=== PATIENT | female | born 1980 | race American Indian/Alaskan Native ===

== ENCOUNTER 2017-12-20 09:02 | Day surgery (SDC) | payer BC ==
[2017-12-18 14:22] VITALS: BMI 19.3
[~2017-12-20 09:02] MED LIST: Lidocaine 1%/Epinephrine 1:100000 30 ml vial IJ STA
[2017-12-20] MEDS ORDERED: Bupivacaine HCl 0.25% PF (10 ml) Inj ONE ×2 (13:08→14:59)
[2017-12-20] MEDS ORDERED: cefOXitin IV 1 gm in Dextrose 1 GM/50 ML BAG IVPB ONE (13:09)
[2017-12-20] MEDS ORDERED: Midazolam 2 MG/2 ML VIAL ONE (13:37)
[2017-12-20] MEDS ORDERED: Propofol 10 mg/ml Inj (20 ML) ONE (13:37)
[2017-12-20] MEDS ORDERED: Neostigmine Methylsulfate 3mg/3ml Syringe IV ONE (15:02)
[2017-12-20] MEDS ORDERED: Morphine 4 MG/ML VIAL ONE (15:11)
[2017-12-20] MEDS ORDERED: Oxycodone/Acetaminophen 5/325 mg Tab PO PRN (15:36)
--- NOTE | 2017-12-20 15:36 | PCM.SURG1 ---
Surgeon's Initial Post Op Note - Surgeon's Notes Surgeon: Dr. Lundberg Basketball Coach: Miranda Woodward, PGY-1; Gaye Hensley Pre-Operative Diagnosis: Cholelithiasis Operative Findings: See op report Post-Operative Diagnosis: Cholelithiasis Operation Performed: Robotic cholecystectomy Specimen/Specimens Removed: Gallbladder Estimated Blood Loss: EBL {In ML}: 10 Blood Products Given: N/A Drains Used: No Drains Post-Op Condition: Good Date of Surgery/Procedure: 12/20/17 Time of Surgery/Procedure: 15:36
[2017-12-20] MEDS ORDERED: HYDROmorphone 0.5 mg/0.5 ml ISec IVP PRN (15:39)
[2017-12-20 15:45] VITALS: O2SAT 100
[2017-12-20] MEDS ORDERED: Lactated Ringer's 1,000 ML IV ONE (18:20)
[2017-12-20 20:57] VITALS: BP 145/87; PULSE 96; RESP 16; TEMP 98.2
--- NOTE | 2017-12-22 07:57 | OP ---
PROCEDURE DATE: 12/20/2017 PREOPERATIVE DIAGNOSES: 1. Chronic cholecystitis and cholelithiasis. 2. Abdominal pain. POSTOPERATIVE DIAGNOSES: 1. Chronic cholecystitis and cholelithiasis. 2. Abdominal pain. 3. Extensive postinfectious adhesion of the omentum and colon to the gallbladder. PROCEDURES: 1. Robotic cholecystectomy. 2. Robotic extensive lysis of adhesions. 3. Bilateral TAP block placement bilaterally. SURGEON: Flaquito Lundberg MD SAP [employer] CONSULTANT: DREW Quan TYPE OF ANESTHESIA: General endotracheal tube anesthesia. ESTIMATED BLOOD LOSS: Around 20 mL. DRAIN: None. PATHOLOGY: Gallbladder was sent for Pathology with a part of cystic duct. COMPLICATIONS: None. INTRAOPERATIVE FINDINGS: The patient had extensive postinfectious adhesion of the omentum and colon and duodenum up to the gallbladder and the gallbladder was also thickened and edematous and the cystic duct was unusually long containing stone, and a part of the cystic duct was also resected with the stone. DESCRIPTION OF PROCEDURE: On intraoperative steps, this is a 37-year-old female, who was diagnosed with acute cholecystitis and cholelithiasis and the patient was consented for robotic cholecystectomy, possible open. Brought to the OR, placed supine on the operating table. After induction of the anesthesia, abdomen was prepped and draped in the usual sterile fashion. A supraumbilical transverse incision was made. After incising skin and subcutaneous tissue, the fascia was incised. A robotic camera port was placed. Another three 8-mm robotic camera were placed and the gallbladder was identified. Gallbladder appears to be covered with omentum and extensive lysis of adhesion was done and the fundus of the gallbladder was retracted cranially. The colon and duodenal wall dissected free from the gallbladder. Gallbladder infundibulum and the Calot's triangle was identified. The patient had extremely long cystic duct that was identified on the Firefly after use of ICG and the Calot's triangle dissection was done. Cystic duct and cystic artery were identified and the cystic duct was divided close to the infundibulum, clipped the cystic artery with ana, and the patient found to have stone in the remaining cystic duct and the dissection was done and part of the cystic duct was removed that was containing the stone and it was sent off the table for the Pathology. There was proper hemostasis in each and every part of the procedure. All the instruments were taken out, robot was undocked and all the ports were taken out under vision. Bilateral TAP block was given. The bilateral TAP block was given right and left side with 30 mL of Marcaine diluted with saline and after the proper TAP block, umbilical port site was closed in two layers, the fascia with 0-Prolene in interrupted sutures, skin with 4-0 Monocryl, and dry sterile dressing was applied. The patient tolerated the procedure well. Count of the instruments and gauze was correct. There was no apparent complication. The patient was extubated in the OR, sent to the postanesthesia care unit in stable condition. Flaquito Lundebrg MD [id number]
== END 2017-12-20 20:30 | disposition home or self-care (01) ==
LOC: C.SDS 09:02
PROVIDERS: ATTEND Surgery Surgical Critical Care
DX: K80.20 Calculus of gallbladder without cholecystitis without obstruction (principal); K80.10 Calculus of gallbladder with chronic cholecystitis without obstruction; K66.0 Peritoneal adhesions (postprocedural) (postinfection); Z86.010 Personal history of colon polyps; Z79.899 Other long term (current) drug therapy
CPT/HCPCS: 47562; C9113; J0694; J1170; J2250; J2270; J2405; J2704; J2710; J3010; J7120; S2900